=== PATIENT | male | born 1985 | race Caucasian/White ===

== ENCOUNTER 2017-04-06 15:05 | Emergency (ER) | payer BC ==
[~2017-04-06] VITALS: Ht 188 cm; Wt 83.0 kg
[~2017-04-06 15:05] MED LIST: ALBUTEROL SULF8.5 GM IH; AMITRIPTYLINE H10 MG PO; BENTYL20 MG PO; BUPRENORPHIN-N1 EACH SL; Bactrim,Septra DS 80 PO; FLOMAX0.4 MG PO; KLONOPIN1 MG PO; MORPHINE SULFAT15 M1 PO; MOTRIN400 MG PO; MS CONTIN,ORAMO60 MG PO; NAPROSYN-EC500 MG PO; NEURONTIN300 MG PO; NEURONTIN600 MG PO; OXYCODONE HCL15 MG PO; OXYCODONE HCL30 MG PO; OxyCODONE PO; PREDNISONE20 MG PO; TORADOL10 MG PO; VENTOLIN HFA18 GM IH; ZOFRAN ODT4 MG PO; suboxone
[2017-04-06 16:01] LABS: BASOPHIL COUNT 0.1 K/uL (0-0.1); EOSINOPHIL (%) 3.8 % (0-5); EOSINOPHIL COUNT 0.3 K/uL (0-0.3); HEMATOCRIT 41.8 % (38.0-50.0); IMMATURE GRANULOCYTE (%) 0.1 % (0.0-0.7); INSTRUMENT ABS NEUTROPHIL CT 2.5 K/uL; LYMPHOCYTE COUNT 3.8 K/uL (1.0-2.8); MCH 30.2 PG (29.0-34.0); MCHC 33.7 G/DL (30.0-36.0); MCV 89.5 FL (86-99); MEAN PLAT.VOLUME 9.8 uM^3 (9.0-12.4); MONOCYTE (%) 7.8 % (3-12); MONOCYTE COUNT 0.6 K/uL (0-0.8); NEUTROPHIL (%) 34.7 % (45-76); NEUTROPHIL COUNT 2.5 K/uL (1.8-6.4); PLATELET COUNT 253 K/uL (156-360); RBC DIS.WIDTH-CV 12.9 % (11.8-14.6); RBC DIS.WIDTH-SD 42.4 % (39-53); RED BLOOD COUNT 4.67 M/uL (4.00-5.50); WHITE BLOOD COUNT 7.2 K/uL (4.1-10.2)
[2017-04-06 16:08] LABS: D-DIMER ELISA < 150.00 ng/mLDDU (<230)
[2017-04-06 16:08] LABS: CHLORIDE 105 mEq/L (99-109); POTASSIUM 4.1 mEq/L (3.7-5.4); SODIUM 142 mEq/L (136-147)
[2017-04-06 16:11] LABS: GLUCOSE 99 mg/dL (70-99)
[2017-04-06 16:12] LABS: ANION GAP 8 MEQ/L (2-14)
[2017-04-06 16:13] LABS: TOTAL BILIRUBIN 0.8 mg/dL (0.0-1.0)
[2017-04-06 16:14] LABS: ALKALINE PHOSPHATASE 79 IU/L (3-129); GFR ESTIMATE (CALCULATED) > 59 mL/min/
[2017-04-06 16:15] LABS: UREA NITROGEN (BUN) 15 mg/dL (9-23)
[2017-04-06 16:35] LABS: TROP-I INTERPRETATION NEGATIVE; TROPONIN-I < 0.01 ng/mL (0.0-0.30)
[2017-04-06 18:27] LABS: TROP-I INTERPRETATION NEGATIVE; TROPONIN-I < 0.01 ng/mL (0.0-0.30)
[2017-04-06] MEDS ORDERED: NAPROSYN500 MG PO (18:32)
[2017-04-06] MEDS ORDERED: TRAMADOL HCL50 MG PO (18:32)
[2017-04-06 18:56] VITALS: BP 111/72
== END 2017-04-06 19:00 | disposition home or self-care (01) ==
LOC: EME 15:05
PROVIDERS: Physician Assistant Medical
DX: R07.89 Other chest pain (principal); K21.9 Gastro-esophageal reflux disease without esophagitis; I25.2 Old myocardial infarction; Z86.718 Personal history of other venous thrombosis and embolism; Z86.711 Personal history of pulmonary embolism; F43.10 Post-traumatic stress disorder, unspecified; F41.9 Anxiety disorder, unspecified; F17.200 Nicotine dependence, unspecified, uncomplicated
CPT/HCPCS: 71020; 80053; 84484; 85025; 85379; 93005; 99281; 99284; J1885

== ENCOUNTER 2017-05-11 00:58 | Emergency (ER) | payer OTHER, BC ==
[~2017-05-11] VITALS: Ht 188 cm; Wt 87.0 kg
[~2017-05-11 00:58] MED LIST changes: +NAPROSYN500 MG PO; +TRAMADOL HCL50 MG PO
[2017-05-11 02:47] VITALS: BP 122/77
== END 2017-05-11 02:47 | disposition home or self-care (01) ==
LOC: EME 00:58 → EXP 00:58
DX: S05.01XA Injury of conjunctiva and corneal abrasion without foreign body, right eye, initial encounter (principal); W22.8XXA Striking against or struck by other objects, initial encounter; F17.200 Nicotine dependence, unspecified, uncomplicated
CPT/HCPCS: 99281; 99283

== ENCOUNTER 2017-05-12 23:15 | Emergency (ER) | payer OTHER, BC ==
[~2017-05-12] VITALS: Ht 188 cm; Wt 85.9 kg
[2017-05-13] MEDS ORDERED: PERCOCET 5/31 TABLET PO (01:18)
[2017-05-13] MEDS ORDERED: MOTRIN800 MG PO (01:18)
[2017-05-13 01:23] VITALS: BP 135/78
== END 2017-05-13 01:34 | disposition home or self-care (01) ==
LOC: EME 23:15
DX: S00.83XA Contusion of other part of head, initial encounter (principal); W31.89XA Contact with other specified machinery, initial encounter; Y99.0 Civilian activity done for income or pay; F17.200 Nicotine dependence, unspecified, uncomplicated
CPT/HCPCS: 70486; 99281; 99284

== ENCOUNTER 2017-12-12 12:52 | Emergency (ER) | payer OTHER ==
[~2017-12-12] VITALS: Ht 188 cm; Wt 86.0 kg
[~2017-12-12 12:52] MED LIST changes: +MOTRIN800 MG PO; +PERCOCET 5/31 TABLET PO
[2017-12-12 13:40] VITALS: BP 130/82
[2017-12-12 14:18] LABS: HEMATOCRIT 43.3 % (38.0-50.0); HEMOGLOBIN 14.9 G/DL (12.5-16.6); MCHC 34.4 G/DL (30.0-36.0); PLATELET COUNT 278 K/uL (156-360); RBC DIS.WIDTH-CV 13.8 % (11.8-14.6); RBC DIS.WIDTH-SD 45.9 % (39-53); RED BLOOD COUNT 4.81 M/uL (4.00-5.50); WHITE BLOOD COUNT 9.9 K/uL (4.1-10.2)
[2017-12-12 14:30] LABS: CHLORIDE 107 mEq/L (99-109); POTASSIUM 4.3 mEq/L (3.7-5.4); SODIUM 145 mEq/L (136-147)
[2017-12-12 14:31] LABS: GLUCOSE 113 mg/dL (70-99)
[2017-12-12 14:35] LABS: CREATININE 0.9 mg/dL (0.6-1.3); GFR ESTIMATE (CALCULATED) > 59 mL/min/ (58.99-99999)
[2017-12-12 14:36] LABS: UREA NITROGEN (BUN) 10 mg/dL (9-23)
[2017-12-12 16:43] LABS: ALBUMIN 4.6 g/dL (3.2-4.8)
[2017-12-12 16:46] LABS: TOTAL PROTEIN 7.7 g/dL (6.4-8.3)
[2017-12-12 16:52] LABS: ALT (GPT) 18 IU/L (3-49)
[2017-12-12 17:00] LABS: ALKALINE PHOSPHATASE 84 IU/L (3-129); AST (GOT) 18 IU/L (2-34); DIRECT BILIRUBIN 0.2 mg/dL (0.0-0.3); TOTAL BILIRUBIN 0.4 mg/dL (0.0-1.0)
[2017-12-12 17:05] LABS: AMYLASE 59 IU/L (1-118)
[2017-12-12 17:14] LABS: LIPASE 45 U/L (1.0-51.0)
[2017-12-12 17:24] LABS: TROP-I INTERPRETATION NEGATIVE; TROPONIN-I 0.01 ng/mL (0.0-0.30)
[2017-12-12 17:55] LABS: D-DIMER ELISA < 150.00 ng/mLDDU (<230)
[2017-12-12] MEDS ORDERED: CARAFATE1 GM PO (18:55)
[2017-12-12] MEDS ORDERED: OMEPRAZOLE40 M1 PO (18:55)
[2017-12-12] MEDS ORDERED: TESSALON PERLE100 MG PO (19:05)
== END 2017-12-12 19:00 | disposition home or self-care (01) ==
LOC: EME 12:52
PROVIDERS: Physician Assistant
DX: K92.0 Hematemesis (principal); R19.7 Diarrhea, unspecified; J06.9 Acute upper respiratory infection, unspecified; I25.10 Atherosclerotic heart disease of native coronary artery without angina pectoris; I25.2 Old myocardial infarction; K21.9 Gastro-esophageal reflux disease without esophagitis; F41.9 Anxiety disorder, unspecified; Z86.711 Personal history of pulmonary embolism; Z86.718 Personal history of other venous thrombosis and embolism; Z87.442 Personal history of urinary calculi; F17.200 Nicotine dependence, unspecified, uncomplicated; Z88.6 Allergy status to analgesic agent
CPT/HCPCS: 71046; 74176; 80048; 80076; 82150; 83690; 84484; 85027; 85379; 86850; 86900; 86901; 93005; 99281; 99284

== ENCOUNTER 2018-03-28 18:04 | Emergency (ER) | payer OTHER ==
[~2018-03-28] VITALS: Ht 188 cm; Wt 83.8 kg
[~2018-03-28 18:04] MED LIST changes: +CARAFATE1 GM PO; +OMEPRAZOLE40 M1 PO; +TESSALON PERLE100 MG PO
[2018-03-28 19:04] VITALS: BP 136/66
== END 2018-03-28 19:26 | disposition home or self-care (01) ==
LOC: EME 18:04
DX: R51 Headache (principal); K21.9 Gastro-esophageal reflux disease without esophagitis; I25.2 Old myocardial infarction; G89.29 Other chronic pain; F41.9 Anxiety disorder, unspecified; F17.200 Nicotine dependence, unspecified, uncomplicated; Z87.442 Personal history of urinary calculi; Z86.718 Personal history of other venous thrombosis and embolism; Z86.711 Personal history of pulmonary embolism; Z88.6 Allergy status to analgesic agent
CPT/HCPCS: 99281; 99285; J0780; J1885; J7030